=== PATIENT | female | born 1955 | race Caucasian/White ===

== ENCOUNTER 2018-02-18 15:54 | Inpatient (IN) | payer OTHER, MEDICAID ==
[~2018-02-18] VITALS: Ht 167.6 cm; Wt 114.4 kg
[~2018-02-18 15:54] MED LIST: ALBU8.5H8 IH; CETI-193 PO; CETI10TA86 PO; CHOL50004 PO; ESOM40CA54 PO; GABA-531 PO; LEVO125T11 PO; LEVO500T2 PO; LORA2TAB2 PO; METH2.5T6 PO; MONT10TA24 PO; PRED20TA3 PO; QUET100T70 PO; RAMI5CAP66 PO; THEO400T3 PO; TIOT4MIS5 IH; VENL-63 PO
[2018-02-18] MEDS ORDERED: IPRATROPIUM/ALBUTEROL SULFATE 3 ML SOLUTION IH ONE ×2 (16:32→18:14)
[2018-02-18 16:35] LABS: BASOPHILS % (AUTO) 1.4 % (0.0-5.0); EOSINOPHILS % (AUTO) 1.1 % (0.0-8.0); HEMATOCRIT 35.6 % (36-48); LYMPHOCYTES % (AUTO) 36.2 % (21.0-51.0); MEAN CORPUSCULAR HGB CONC 33.7 g/dL (32.0-36.0); MEAN CORPUSCULAR VOLUME 80.1 fL (79-99); MONOCYTES % (AUTO) 6.8 % (3.0-13.0); NEUTROPHILS % (AUTO) 54.5 % (40.0-77.0); NUCLEATED RED BLOOD CELLS 0.1 % (0.0-0.19); PLATELET COUNT (AUTO) 263 K/uL (130-400); RED BLOOD CELL COUNT(AUTO) 4.44 MIL/uL (4.00-5.50); RED CELL DISTRIBUTION WIDTH 15.4 % (11.0-15.5); WHITE BLOOD COUNT (AUTO) 6.2 K/uL (4.8-10.8)
[2018-02-18] MEDS ORDERED: METHYLPREDNISOLONE SOD SUCC 125MG/2ML VIAL ONE (16:37)
[2018-02-18] MEDS ORDERED: ACETAMINOPHEN EXTRA STRENGTH 500 MG TABLET ONE (16:37)
[2018-02-18] MEDS ORDERED: LEVOFLOXACIN 750 MG/D5W 150 ML 150 ML ONE (16:37)
[2018-02-18 16:50] LABS: INR 1.01 (0.85-1.15); PARTIAL THROMBOPLASTIN TIME 32.6 SEC (26.3-35.5); PROTHROMBIN TIME 10.6 SEC (9.6-11.6)
[2018-02-18 17:00] LABS: ALANINE AMINOTRANSFERASE 49 U/L (12-78); ASPARTATE AMINOTRANSFERASE 42 U/L (10-37); BILIRUBIN,TOTAL 0.4 mg/dL (0.2-1.0); CARBON DIOXIDE 32 mmol/L (21-32); CHLORIDE 97 mmol/L (101-111); CREATINE KINASE, TOTAL 125 U/L (21-232); CREATININE 0.9 mg/dL (0.5-1.5); GLOMERULAR FILTR. RATE CALC 68 mL/min (>60); GLUCOSE,RANDOM 139 mg/dL (70-105); MYOGLOBIN 109 ng/mL (10-92); SODIUM SERUM 138 mmol/L (136-145); TOTAL PROTEIN, SERUM 7.4 g/dL (6.0-8.3); TROPONIN I < 0.04 ng/mL (0.00-0.06); UREA NITROGEN, BLOOD 18 mg/dL (7-18)
[2018-02-18 17:03] LABS: POTASSIUM 2.9 mmol/L (3.5-5.1)
[2018-02-18] MEDS ORDERED: POTASSIUM CHLORIDE 20 MEQ ERTAB PO ONE (18:02)
[2018-02-18] MEDS ORDERED: CEFTRIAXONE SODIUM 1 GM ONE (18:09)
[2018-02-18] MEDS ORDERED: SODIUM CHLORIDE 0.9% 500ML 500 ML IV ONE (18:10)
[2018-02-18 18:26] LABS: APPEARANCE,URINE Clear (CLEAR); BILIRUBIN,URINE Negative (NEGATIVE); COLOR,URINE Yellow (YELLOW); GLUCOSE, URINE (UA) Negative (NEGATIVE); KETONES,URINE Negative (NEGATIVE); LEUKOCYTE ESTERASE ,URINE Trace (NEGATIVE); NITRATE,URINE Negative (NEGATIVE); OCCULT BLOOD,URINE Negative (NEGATIVE); PH,URINE 6.5 (5.0-8.0); PROTEIN,URINE Trace (NEGATIVE)
[2018-02-18] MEDS ORDERED: POTASSIUM CHLORIDE 20MEQ/100ML 100 ML IV PRN (18:45)
[2018-02-18] MEDS ORDERED: LIDOCAINE HCL-MPF 1% 2ML VIAL IVP PRN (18:45)
[2018-02-18] MEDS ORDERED: POTASSIUM CHLORIDE 10% ELIXIR 20 MEQ/15 ML UDCUP PO PRN (18:45)
[2018-02-18 18:49] LABS: BACTERIA,URINE Few /HPF (None Seen); RBC,URINE 0-1 /HPF (0-1); SQUAMOUS EPITHELIAL CELL,UR Few /HPF (0-2)
[2018-02-18 19:41] LABS: ABG BASE EXCESS 4.4 mmol/L (-2.0-3.0); ABG HCO3 28.4 mmol/L (21.0-28.0); ABG OXYGEN SATURATION 96.9 % (95.0-99.0); ABG PCO2 40 mmHg (32-45)
[2018-02-18] MEDS ORDERED: SODIUM CHLORIDE 0.9% 1000ML 1,000 ML IV SCH (20:18)
[2018-02-18 20:20] VITALS: BP 128/57
[2018-02-18] MEDS: CEFTRIAXONE SODIUM 1 GM IV SCH (20:30)
[2018-02-18] MEDS ORDERED: ONDANSETRON HCL 4 MG/2 ML VIAL IV PRN (20:30)
[2018-02-18] MEDS: LEVOFLOXACIN 500 MG/D5W 100 ML 100 ML IV SCH (20:30)
[2018-02-18] MEDS: METHYLPREDNISOLONE SOD SUCC 125MG/2ML VIAL IV SCH (20:30)
[2018-02-18] MEDS ORDERED: ACETAMINOPHEN 325 MG TAB PO PRN (20:30)
[2018-02-18] MEDS ORDERED: BENZONATATE 100 MG CAPSULE PO SCH (21:00)
[2018-02-18] MEDS ORDERED: BENZONATATE 100 MG CAPSULE PO PRN (21:00)
[2018-02-18] MEDS: IPRATROPIUM/ALBUTEROL SULFATE 3 ML SOLUTION IH SCH (21:08)
[2018-02-18 22:41] LABS: CREATINE KINASE, TOTAL 102 U/L (21-232); MYOGLOBIN 102 ng/mL (10-92); TROPONIN I < 0.04 ng/mL (0.00-0.06)
[2018-02-18] MEDS: MAGNESIUM 2GM PREMIX 50ML 50 ML IV PRN (23:55)
[2018-02-18] MEDS: POTASSIUM CHLORIDE 20 MEQ ERTAB PO PRN (23:58)
[2018-02-19 00:05] VITALS: BP 117/64
[2018-02-19] MEDS: IPRATROPIUM/ALBUTEROL SULFATE 3 ML SOLUTION IH SCH ×6 (01:23→21:45)
[2018-02-19 04:05] VITALS: BP 130/67
[2018-02-19] MEDS: METHYLPREDNISOLONE SOD SUCC 125MG/2ML VIAL IV SCH ×3 (05:06→21:05)
[2018-02-19 05:37] LABS: BASOPHILS % (AUTO) 0.3 % (0.0-5.0); EOSINOPHILS % (AUTO) 0.1 % (0.0-8.0); HEMATOCRIT 30.4 % (36-48); LYMPHOCYTES % (AUTO) 36.5 % (21.0-51.0); MEAN CORPUSCULAR HEMOGLOBIN 27.1 pg (27.0-33.0); MEAN CORPUSCULAR HGB CONC 33.7 g/dL (32.0-36.0); MEAN CORPUSCULAR VOLUME 80.5 fL (79-99); MONOCYTES % (AUTO) 6.5 % (3.0-13.0); NEUTROPHILS % (AUTO) 56.6 % (40.0-77.0); PLATELET COUNT (AUTO) 281 K/uL (130-400); RED BLOOD CELL COUNT(AUTO) 3.78 MIL/uL (4.00-5.50); RED CELL DISTRIBUTION WIDTH 15.6 % (11.0-15.5); WHITE BLOOD COUNT (AUTO) 7.5 K/uL (4.8-10.8)
[2018-02-19 06:00] LABS: ALANINE AMINOTRANSFERASE 40 U/L (12-78); ALBUMIN 2.6 g/dL (3.5-5.0); ASPARTATE AMINOTRANSFERASE 29 U/L (10-37); BILIRUBIN,TOTAL 0.2 mg/dL (0.2-1.0); CARBON DIOXIDE 32 mmol/L (21-32); CHLORIDE 101 mmol/L (101-111); CREATINE KINASE, TOTAL 97 U/L (21-232); CREATININE 0.9 mg/dL (0.5-1.5); GLOMERULAR FILTR. RATE CALC 68 mL/min (>60); GLUCOSE,RANDOM 162 mg/dL (70-105); MYOGLOBIN 83 ng/mL (10-92); POTASSIUM 3.2 mmol/L (3.5-5.1); SODIUM SERUM 139 mmol/L (136-145); TOTAL PROTEIN, SERUM 6.5 g/dL (6.0-8.3); TROPONIN I < 0.04 ng/mL (0.00-0.06); UREA NITROGEN, BLOOD 14 mg/dL (7-18)
[2018-02-19] MEDS: POTASSIUM CHLORIDE 20 MEQ ERTAB PO PRN ×2 (06:24→18:40)
[2018-02-19] MEDS: MAGNESIUM 2GM PREMIX 50ML 50 ML IV PRN (06:35)
[2018-02-19 07:00] VITALS: BP 135/74
[2018-02-19] MEDS: PANTOPRAZOLE SODIUM 40 MG TABLET.DR PO SCH (08:55)
[2018-02-19] MEDS: ENOXAPARIN SODIUM 40 MG/0.4 ML SYRINGE SQ SCH (08:56)
[2018-02-19 11:00] VITALS: BP 132/79
[2018-02-19 16:00] VITALS: BP 142/53
[2018-02-19] MEDS ORDERED: LEVOFLOXACIN 500 MG/D5W 100 ML 100 ML IV SCH (18:15)
[2018-02-19 19:10] VITALS: BP 113/58
[2018-02-19] MEDS: LEVOFLOXACIN 500 MG/D5W 100 ML 100 ML IV SCH (21:02)
[2018-02-19] MEDS: CEFTRIAXONE SODIUM 1 GM IV SCH (21:04)
[2018-02-20 00:15] VITALS: BP 139/75
[2018-02-20] MEDS: IPRATROPIUM/ALBUTEROL SULFATE 3 ML SOLUTION IH SCH ×2 (01:19→06:31)
[2018-02-20 04:36] VITALS: BP 128/69
[2018-02-20] MEDS: METHYLPREDNISOLONE SOD SUCC 125MG/2ML VIAL IV SCH ×2 (04:49→12:36)
[2018-02-20 04:51] LABS: HEMATOCRIT 30.3 % (36-48); MEAN CORPUSCULAR HEMOGLOBIN 27.3 pg (27.0-33.0); MEAN CORPUSCULAR HGB CONC 33.7 g/dL (32.0-36.0); MEAN CORPUSCULAR VOLUME 81.2 fL (79-99); PLATELET COUNT (AUTO) 290 K/uL (130-400); RED BLOOD CELL COUNT(AUTO) 3.73 MIL/uL (4.00-5.50); RED CELL DISTRIBUTION WIDTH 15.8 % (11.0-15.5)
[2018-02-20 04:59] LABS: CREATININE 0.9 mg/dL (0.5-1.5); MAGNESIUM 2.3 mg/dL (1.80-2.40); POTASSIUM 4.1 mmol/L (3.5-5.1)
[2018-02-20 08:36] VITALS: BP 143/79
[2018-02-20] MEDS: PANTOPRAZOLE SODIUM 40 MG TABLET.DR PO SCH (09:28)
[2018-02-20] MEDS: ENOXAPARIN SODIUM 40 MG/0.4 ML SYRINGE SQ SCH (09:29)
[2018-02-20] MEDS ORDERED: LEVO500T89 PO (11:32)
[2018-02-20 11:38] VITALS: BP 104/63
[2018-02-20] MEDS ORDERED: IPRATROPIUM/ALBUTEROL SULFATE 3 ML SOLUTION IH SCH (18:00)
== END 2018-02-20 15:50 | disposition home or self-care (01) | DRG 872 ==
LOC: EDH 15:54 → EDHIP 18:30 → 3DH 19:31 → 3BH 19:40
PROVIDERS: ADMIT Hospitalist; ATTEND Hospitalist
DX: A41.9 Sepsis, unspecified organism (principal); J44.1 Chronic obstructive pulmonary disease with (acute) exacerbation; Z68.41 Body mass index [BMI] 40.0-44.9, adult; R65.20 Severe sepsis without septic shock; E87.6 Hypokalemia; E66.01 Morbid (severe) obesity due to excess calories; E89.0 Postprocedural hypothyroidism; G62.9 Polyneuropathy, unspecified; M79.7 Fibromyalgia; F41.9 Anxiety disorder, unspecified; Z90.710 Acquired absence of both cervix and uterus; Z87.01 Personal history of pneumonia (recurrent); Z85.850 Personal history of malignant neoplasm of thyroid; Z85.820 Personal history of malignant melanoma of skin; Z82.49 Family history of ischemic heart disease and other diseases of the circulatory system
CPT/HCPCS: 36415; 36600; 71045; 80048; 80053; 80339; 81001; 82550; 82803; 83605; 83735; 83874; 84132; 84484; 85025; 85027; 85610; 85730; 86140; 87040; 87088; 87804; 93005; 94640; 94664; A4218; J0696; J1650; J1956; J2930; J3475; J3480; J7030; J7040

== ENCOUNTER 2018-07-02 21:38 | Inpatient (IN) | payer OTHER, MEDICAID | END 2018-07-04 15:00 | disposition home or self-care (01) | LOC: EDH 21:38 → EDHIP 23:50 → 2AH 07-03 01:36 | DX: J45.901 Unspecified asthma with (acute) exacerbation (principal); K44.9 Diaphragmatic hernia without obstruction or gangrene; Z98.84 Bariatric surgery status ==

== ENCOUNTER 2018-10-07 11:32 | Inpatient (IN) | payer OTHER, MEDICAID ==
[~2018-10-07] VITALS: Ht 167.6 cm; Wt 113.4 kg
[~2018-10-07 11:32] MED LIST changes: -ALBU8.5H8 IH; +ALPR2TAB7 PO; +ASPI-555 PO; +BUDE10.2 IH; +CARV3.12 PO; -CETI-193 PO; +CETI10TA57 PO; -CETI10TA86 PO; -CHOL50004 PO; +DOCU240C25 PO; +ESOM20TA PO; -ESOM40CA54 PO; +FURO20TA4 PO; -LEVO125T11 PO; +LEVO25TA54 PO; -LEVO500T2 PO; -LORA2TAB2 PO; -METH2.5T6 PO; +PANT40TA25 PO; -PRED20TA3 PO; +PRED5TAB44 PO; -THEO400T3 PO; -VENL-63 PO
[2018-10-07] MEDS ORDERED: ASPIRIN 325 MG TABLET ONE (12:23)
[2018-10-07 12:41] LABS: BASOPHILS % (AUTO) 0.3 % (0.0-5.0); EOSINOPHILS % (AUTO) 0.2 % (0.0-8.0); HEMATOCRIT 35.6 % (36-48); LYMPHOCYTES % (AUTO) 6.6 % (21.0-51.0); MEAN CORPUSCULAR HEMOGLOBIN 28.3 pg (27.0-33.0); MEAN CORPUSCULAR HGB CONC 33.4 g/dL (32.0-36.0); MEAN CORPUSCULAR VOLUME 84.7 fL (79-99); MONOCYTES % (AUTO) 3.6 % (3.0-13.0); NEUTROPHILS % (AUTO) 89.3 % (40.0-77.0); PLATELET COUNT (AUTO) 225 K/uL (130-400); RED BLOOD CELL COUNT(AUTO) 4.21 MIL/uL (4.00-5.50); RED CELL DISTRIBUTION WIDTH 13.8 % (11.0-15.5); WHITE BLOOD COUNT (AUTO) 10.2 K/uL (4.8-10.8)
[2018-10-07 12:55] LABS: INR 1.04 (0.85-1.15); PARTIAL THROMBOPLASTIN TIME 29.9 SEC (26.3-35.5); PROTHROMBIN TIME 10.9 SEC (9.6-11.6)
[2018-10-07 12:58] LABS: CREATININE 1.1 mg/dL (0.5-1.5)
[2018-10-07 13:17] LABS: ALBUMIN 2.8 g/dL (3.5-5.0); BILIRUBIN,TOTAL 0.4 mg/dL (0.2-1.0); TOTAL PROTEIN, SERUM 6.2 g/dL (6.0-8.3)
[2018-10-07] MEDS ORDERED: ACETAMINOPHEN EXTRA STRENGTH 500 MG TABLET ONE (13:22)
[2018-10-07 13:27] LABS: B-TYPE NATRIURETIC PEPTIDE 10 pg/mL (0-100)
[2018-10-07 13:30] LABS: BAND NEUTROPHILS % (MANUAL) 20 % (0-2); EOSINOPHILS % (MANUAL) 1 % (1-6); LYMPHOCYTES % (MANUAL) 8 % (22-44); MAN.DIFF COMMENT-IMPRESSION MANUAL DIFFERENTIAL; MONOCYTES % (MANUAL) 3 % (2-9); PLATELET MORPHOLOGY COMMENT ADEQUATE; SEGMENTED NEUTROPHILS % 68 % (40-70)
[2018-10-07] MEDS ORDERED: POTASSIUM CHLORIDE 20 MEQ ERTAB PO ONE ×2 (13:59→19:13)
[2018-10-07] MEDS ORDERED: LEVOFLOXACIN 500 MG/D5W 100 ML 100 ML ONE (13:59)
[2018-10-07] MEDS ORDERED: IPRATROPIUM/ALBUTEROL SULFATE 3 ML SOLUTION IH ONE (15:45)
[2018-10-07] MEDS ORDERED: HYDRALAZINE HCL 20 MG/ML VIAL IV PRN (18:15)
[2018-10-07] MEDS ORDERED: GUAIFENESIN-DM 200/20 MG 10 ML PO PRN (18:15)
[2018-10-07] MEDS: AZITHROMYCIN 500MG+NS 250ML 250 ML IV SCH (18:15)
[2018-10-07] MEDS ORDERED: LACTULOSE 20 GM/30 ML UDCUP PO PRN (18:15)
[2018-10-07] MEDS ORDERED: ACETAMINOPHEN 325 MG TAB PO PRN ×2 (18:15)
[2018-10-07] MEDS ORDERED: ONDANSETRON HCL 4 MG/2 ML VIAL IV PRN (18:15)
[2018-10-07] MEDS ORDERED: POTASSIUM CHLORIDE 20 MEQ ERTAB PO SCH ×2 (18:30→22:30)
[2018-10-07] MEDS ORDERED: AZITHROMYCIN 500MG+NS 250ML 250 ML IV ONE (19:13)
[2018-10-07] MEDS ORDERED: SODIUM CHLORIDE 0.9% 1000ML 1,000 ML IV ONE (19:13)
[2018-10-07] MEDS ORDERED: ACETAMINOPHEN 325 MG TAB ONE (19:23)
[2018-10-07] MEDS ORDERED: SODIUM CHLORIDE 3% FOR INHALATION 4 ML/AMP VIAL.NEB IH ONE (19:55)
[2018-10-07] MEDS: CEFTRIAXONE SODIUM 1 GM IV SCH (21:00)
[2018-10-07] MEDS: FAMOTIDINE/PF 20 MG/2 ML VIAL IV SCH (21:00)
[2018-10-07] MEDS ORDERED: CEFTRIAXONE SODIUM 1 GM ONE (21:34)
[2018-10-07] MEDS ORDERED: FAMOTIDINE 20MG TAB 20 MG TAB ONE (21:34)
[2018-10-08 00:18] VITALS: BP 126/61
[2018-10-08] MEDS: SODIUM CHLORIDE 3% FOR INHALATION 4 ML/AMP VIAL.NEB IH SCH ×5 (00:24→23:07)
[2018-10-08] MEDS: SODIUM CHLORIDE 0.9% 1000ML 1,000 ML IV SCH ×2 (00:49→04:11)
[2018-10-08] MEDS ORDERED: POTA10TA14 PO (02:04)
[2018-10-08] MEDS ORDERED: BUTA-256 PO (02:04)
[2018-10-08] MEDS ORDERED: TRAM50TA4 PO (02:04)
[2018-10-08] MEDS ORDERED: GABA-531 PO (02:04)
[2018-10-08] MEDS ORDERED: LEVO112T7 PO (02:04)
[2018-10-08] MEDS ORDERED: OLME20TA22 PO (02:04)
[2018-10-08] MEDS ORDERED: VENL150T3 PO (02:04)
[2018-10-08] MEDS ORDERED: LEVO500T89 PO (02:04)
[2018-10-08 03:00] VITALS: BP 138/74
[2018-10-08] MEDS: METHYLPREDNISOLONE SOD SUCC 40MG/ML 1ML IVP SCH ×4 (03:40→22:43)
[2018-10-08 06:10] LABS: HEMATOCRIT 33.3 % (36-48); MEAN CORPUSCULAR HEMOGLOBIN 28.4 pg (27.0-33.0); MEAN CORPUSCULAR HGB CONC 33.5 g/dL (32.0-36.0); MEAN CORPUSCULAR VOLUME 84.9 fL (79-99); PLATELET COUNT (AUTO) 230 K/uL (130-400); RED BLOOD CELL COUNT(AUTO) 3.92 MIL/uL (4.00-5.50); RED CELL DISTRIBUTION WIDTH 13.6 % (11.0-15.5); WHITE BLOOD COUNT (AUTO) 18.1 K/uL (4.8-10.8)
[2018-10-08 06:25] LABS: CREATININE 0.8 mg/dL (0.5-1.5); POTASSIUM 3.7 mmol/L (3.5-5.1)
[2018-10-08 08:00] VITALS: BP 112/78
[2018-10-08] MEDS: CEFTRIAXONE SODIUM 1 GM IV SCH ×2 (08:35→22:44)
[2018-10-08] MEDS: CETIRIZINE HCL 5 MG TABLET PO SCH (08:36)
[2018-10-08] MEDS: ENOXAPARIN SODIUM 40 MG/0.4 ML SYRINGE SQ SCH (08:36)
[2018-10-08] MEDS: FAMOTIDINE/PF 20 MG/2 ML VIAL IV SCH ×2 (08:36→22:24)
[2018-10-08] MEDS ORDERED: IPRATROPIUM/ALBUTEROL SULFATE 3 ML SOLUTION IH ONE (10:39)
[2018-10-08] MEDS: ACETYLCYSTEINE 20% 200MG/ML 4ML VIAL PO SCH ×3 (12:52→23:07)
[2018-10-08] MEDS: IPRATROPIUM/ALBUTEROL SULFATE 3 ML SOLUTION IH SCH ×3 (12:53→23:07)
[2018-10-08] MEDS ORDERED: ALBUTEROL SULFATE 0.083% 2.5 MG/3 ML INH IH PRN (14:00)
[2018-10-08] MEDS: GABAPENTIN 300 MG CAPSULE PO SCH ×2 (15:14→22:43)
[2018-10-08 16:00] VITALS: BP 129/76
[2018-10-08] MEDS: INSULIN HUMULIN R 100 UNIT/ML 3ML SQ SCH ×2 (16:30→22:30)
--- NOTE | 2018-10-08 17:21 | NUR ---
DCP CM met with pt discussed dc plans. Pt is assist with ADL's prior to admission, lives at home with spouse and takes care of 3 grandchildren. Pt has a provider w/[employer] 15hrs/wk, has oxygen, nebulizer machine, and shower chair at home. Pt feels safe to go back home, spouse able to assist with transportation and needs, spouse able to assist with transportation and needs as necessary. DC plan to home once stable. CM to cont to follow up. Addendum: 10/08/18 at 1724 by ANGEL LUIS HERNANDEZ LVN CM Amended: Links added.
[2018-10-08] MEDS: AZITHROMYCIN 500MG+NS 250ML 250 ML IV SCH (17:31)
[2018-10-08 19:35] VITALS: BP 134/76
[2018-10-08] MEDS ORDERED: SUB PER P&T FOR ASTHMA OR COPD RECOMMENDATION IH SCH (21:00)
[2018-10-08] MEDS: MONTELUKAST SODIUM 10 MG TAB PO SCH ×2 (21:00→22:25)
[2018-10-08] MEDS: VENLAFAXINE HCL XR 37.5 MG CAP PO SCH (22:24)
[2018-10-08] MEDS: DOCUSATE SODIUM 100 MG CAP PO SCH (22:25)
[2018-10-08] MEDS: CARVEDILOL 3.125 MG TABLET PO SCH (22:25)
[2018-10-08] MEDS: ALPRAZOLAM 1 MG TAB PO SCH (22:26)
[2018-10-08 23:35] VITALS: BP 153/87
[2018-10-09 03:35] VITALS: BP 126/55
[2018-10-09 05:56] LABS: BASOPHILS % (AUTO) 0.2 % (0.0-5.0); HEMATOCRIT 33.8 % (36-48); LYMPHOCYTES % (AUTO) 6.8 % (21.0-51.0); MEAN CORPUSCULAR HEMOGLOBIN 27.6 pg (27.0-33.0); MEAN CORPUSCULAR HGB CONC 32.3 g/dL (32.0-36.0); MEAN CORPUSCULAR VOLUME 85.4 fL (79-99); MONOCYTES % (AUTO) 2.1 % (3.0-13.0); NEUTROPHILS % (AUTO) 90.9 % (40.0-77.0); PLATELET COUNT (AUTO) 282 K/uL (130-400); RED BLOOD CELL COUNT(AUTO) 3.96 MIL/uL (4.00-5.50); WHITE BLOOD COUNT (AUTO) 17.1 K/uL (4.8-10.8)
[2018-10-09 06:02] LABS: CREATININE 0.8 mg/dL (0.5-1.5); POTASSIUM 4.3 mmol/L (3.5-5.1)
[2018-10-09] MEDS: IPRATROPIUM/ALBUTEROL SULFATE 3 ML SOLUTION IH SCH ×3 (07:16→19:26)
[2018-10-09] MEDS: ACETYLCYSTEINE 20% 200MG/ML 4ML VIAL PO SCH ×2 (07:17→19:26)
[2018-10-09] MEDS: INSULIN HUMULIN R 100 UNIT/ML 3ML SQ SCH ×3 (07:20→22:29)
[2018-10-09] MEDS: METHYLPREDNISOLONE SOD SUCC 40MG/ML 1ML IVP SCH ×2 (07:25→15:41)
[2018-10-09] MEDS: LEVOTHYROXINE 112 MCG TABLET PO SCH (07:25)
[2018-10-09] MEDS: ASPIRIN 81 MG EC TAB PO SCH (07:25)
[2018-10-09 08:00] VITALS: BP 146/72
[2018-10-09] MEDS: CETIRIZINE HCL 5 MG TABLET PO SCH ×2 (09:00→09:54)
[2018-10-09] MEDS ORDERED: POTASSIUM CHLORIDE 10 MEQ/TAB.SA PO SCH (09:00)
[2018-10-09] MEDS: DOCUSATE SODIUM 100 MG CAP PO SCH ×2 (09:51→22:26)
[2018-10-09] MEDS: ALPRAZOLAM 1 MG TAB PO SCH ×2 (09:51→22:26)
[2018-10-09] MEDS: LOSARTAN 50 MG TABLET PO SCH (09:52)
[2018-10-09] MEDS: VENLAFAXINE HCL XR 37.5 MG CAP PO SCH ×2 (09:53→22:26)
[2018-10-09] MEDS: CARVEDILOL 3.125 MG TABLET PO SCH ×2 (09:53→22:27)
[2018-10-09] MEDS: GABAPENTIN 300 MG CAPSULE PO SCH ×3 (09:54→22:26)
[2018-10-09] MEDS: FUROSEMIDE 20 MG TABLET PO SCH (09:55)
[2018-10-09] MEDS: FAMOTIDINE/PF 20 MG/2 ML VIAL IV SCH ×2 (09:55→22:25)
[2018-10-09] MEDS: CEFTRIAXONE SODIUM 1 GM IV SCH ×2 (09:55→22:21)
[2018-10-09] MEDS: ENOXAPARIN SODIUM 40 MG/0.4 ML SYRINGE SQ SCH (09:58)
[2018-10-09] MEDS: SODIUM CHLORIDE 3% FOR INHALATION 4 ML/AMP VIAL.NEB IH SCH ×2 (11:26→19:26)
[2018-10-09 12:00] VITALS: BP 136/79
[2018-10-09 20:00] VITALS: BP 133/67
[2018-10-09] MEDS: MONTELUKAST SODIUM 10 MG TAB PO SCH ×2 (21:00→22:25)
[2018-10-10] VITALS: BP 153/94
[2018-10-10 04:00] VITALS: BP 144/86
[2018-10-10 05:11] LABS: BASOPHILS % (AUTO) 0.3 % (0.0-5.0); EOSINOPHILS % (AUTO) 0.2 % (0.0-8.0); HEMATOCRIT 32.2 % (36-48); LYMPHOCYTES % (AUTO) 15.3 % (21.0-51.0); MEAN CORPUSCULAR HEMOGLOBIN 28.5 pg (27.0-33.0); MEAN CORPUSCULAR HGB CONC 33.5 g/dL (32.0-36.0); MONOCYTES % (AUTO) 4.5 % (3.0-13.0); NEUTROPHILS % (AUTO) 79.7 % (40.0-77.0); PLATELET COUNT (AUTO) 275 K/uL (130-400); RED BLOOD CELL COUNT(AUTO) 3.78 MIL/uL (4.00-5.50); RED CELL DISTRIBUTION WIDTH 13.8 % (11.0-15.5); WHITE BLOOD COUNT (AUTO) 16.7 K/uL (4.8-10.8)
[2018-10-10 05:16] LABS: CREATININE 0.8 mg/dL (0.5-1.5); POTASSIUM 3.9 mmol/L (3.5-5.1)
[2018-10-10] MEDS: SODIUM CHLORIDE 3% FOR INHALATION 4 ML/AMP VIAL.NEB IH SCH ×2 (06:11→11:18)
[2018-10-10] MEDS: ACETYLCYSTEINE 20% 200MG/ML 4ML VIAL PO SCH (06:12)
[2018-10-10] MEDS: IPRATROPIUM/ALBUTEROL SULFATE 3 ML SOLUTION IH SCH ×2 (06:12→11:18)
[2018-10-10] MEDS: INSULIN HUMULIN R 100 UNIT/ML 3ML SQ SCH ×2 (06:27→11:30)
[2018-10-10] MEDS: LEVOTHYROXINE 112 MCG TABLET PO SCH (06:39)
[2018-10-10 07:39] VITALS: BP 154/87
--- NOTE | 2018-10-10 08:00 | NUR ---
AM SHIFT ASSESSMENT, BREATHING EASY AND STATES FEELING SO MUCH BETTER.
[2018-10-10] MEDS: FUROSEMIDE 20 MG TABLET PO SCH (08:45)
[2018-10-10] MEDS: ALPRAZOLAM 1 MG TAB PO SCH (08:45)
[2018-10-10] MEDS: CETIRIZINE HCL 5 MG TABLET PO SCH ×2 (08:45)
[2018-10-10] MEDS: VENLAFAXINE HCL XR 37.5 MG CAP PO SCH (08:46)
[2018-10-10] MEDS: DOCUSATE SODIUM 100 MG CAP PO SCH (08:46)
[2018-10-10] MEDS: ASPIRIN 81 MG EC TAB PO SCH (08:46)
[2018-10-10] MEDS: LOSARTAN 50 MG TABLET PO SCH (08:47)
[2018-10-10] MEDS: FAMOTIDINE/PF 20 MG/2 ML VIAL IV SCH (08:49)
[2018-10-10] MEDS: CARVEDILOL 3.125 MG TABLET PO SCH (08:49)
[2018-10-10] MEDS: ENOXAPARIN SODIUM 40 MG/0.4 ML SYRINGE SQ SCH (08:53)
[2018-10-10] MEDS ORDERED: PREDNISONE 20 MG TABLET PO SCH (09:00)
[2018-10-10] MEDS ORDERED: FLUC150T6 PO (09:08)
[2018-10-10] MEDS ORDERED: CEFD300C3 PO (09:08)
[2018-10-10] MEDS ORDERED: METH4TAB3 PO (09:17)
[2018-10-10] MEDS: CEFTRIAXONE SODIUM 1 GM IV SCH ×2 (10:08→10:19)
[2018-10-10] MEDS: GABAPENTIN 300 MG CAPSULE PO SCH (10:08)
[2018-10-10 12:00] VITALS: BP 141/93
--- NOTE | 2018-10-10 13:36 | NUR ---
DISCHARGED NOW USING TEACH BACK. DISCHARGE INST. WITH RX GIVEN WITH SPOUSE PRESENT. BOTH VERBALIZE UNDERSTANDING.
[2018-10-12 13:11] LABS: ALPHA-1-ANTITRYPSIN 135 mg/dL (90-200)
== END 2018-10-10 13:40 | disposition home or self-care (01) | DRG 193 ==
LOC: EDH 11:32 → EDHIP 18:11 → 3AH 10-08 00:18
PROVIDERS: ADMIT Internal Medicine; ATTEND Internal Medicine
DX: J18.9 Pneumonia, unspecified organism (principal); J96.21 Acute and chronic respiratory failure with hypoxia; E44.0 Moderate protein-calorie malnutrition; J44.0 Chronic obstructive pulmonary disease with (acute) lower respiratory infection; J44.1 Chronic obstructive pulmonary disease with (acute) exacerbation; Z68.41 Body mass index [BMI] 40.0-44.9, adult; E87.6 Hypokalemia; E89.0 Postprocedural hypothyroidism; Z99.81 Dependence on supplemental oxygen; Z90.710 Acquired absence of both cervix and uterus; Z90.721 Acquired absence of ovaries, unilateral; Z82.49 Family history of ischemic heart disease and other diseases of the circulatory system
CPT/HCPCS: 36415; 71045; 80048; 80053; 82103; 82104; 82550; 82948; 83605; 83874; 83880; 84484; 85025; 85027; 85610; 85730; 87040; 87071; 87205; 87486; 87581; 87633; 87798; 93005; 94640; 94664; 94667; 94668; G0378; J0456; J0696; J1650; J1815; J1956; J2920; J3490; J7030; J7608

== ENCOUNTER 2018-11-10 09:56 | Inpatient (IN) | payer OTHER, MEDICAID ==
[~2018-11-10] VITALS: Ht 170.2 cm; Wt 113.5 kg
[~2018-11-10 09:56] MED LIST changes: +CEFD300C3 PO; +FLUC150T6 PO; +LEVO112T7 PO; -LEVO25TA54 PO; +METH4TAB3 PO; +OLME20TA22 PO; -PANT40TA25 PO; +POTA10TA14 PO; -PRED5TAB44 PO; -QUET100T70 PO; +TRAM50TA4 PO; +VENL150T3 PO
[2018-11-10] MEDS ORDERED: ENOXAPARIN SODIUM 40 MG/0.4 ML SYRINGE SQ ONE (10:51)
[2018-11-10] MEDS ORDERED: METHYLPREDNISOLONE SOD SUCC 40MG/ML 1ML ONE (10:51)
[2018-11-10] MEDS ORDERED: ZOSYN 3.375GM+NS 50ML 50 ML IV ONE (10:51)
[2018-11-10] MEDS ORDERED: PANTOPRAZOLE SODIUM 40 MG TABLET.DR PO ONE (10:52)
[2018-11-10 11:09] LABS: CREATININE 0.9 mg/dL (0.5-1.5); POTASSIUM 3.9 mmol/L (3.5-5.1)
[2018-11-10 11:40] LABS: BASOPHILS % (AUTO) 0.3 % (0.0-5.0); EOSINOPHILS % (AUTO) 0.1 % (0.0-8.0); HEMATOCRIT 35.3 % (36-48); LYMPHOCYTES % (AUTO) 10.6 % (21.0-51.0); MEAN CORPUSCULAR HEMOGLOBIN 27.5 pg (27.0-33.0); MEAN CORPUSCULAR HGB CONC 32.9 g/dL (32.0-36.0); MEAN CORPUSCULAR VOLUME 83.6 fL (79-99); MONOCYTES % (AUTO) 4.1 % (3.0-13.0); NEUTROPHILS % (AUTO) 84.9 % (40.0-77.0); PLATELET COUNT (AUTO) 216 K/uL (130-400); RED BLOOD CELL COUNT(AUTO) 4.22 MIL/uL (4.00-5.50); RED CELL DISTRIBUTION WIDTH 14.5 % (11.0-15.5); WHITE BLOOD COUNT (AUTO) 15.7 K/uL (4.8-10.8)
[2018-11-10 12:05] LABS: B-TYPE NATRIURETIC PEPTIDE 21 pg/mL (0-100)
[2018-11-10 14:27] LABS: APPEARANCE,URINE Clear (CLEAR); BILIRUBIN,URINE Negative (NEGATIVE); COLOR,URINE Yellow (YELLOW); GLUCOSE, URINE (UA) Negative (NEGATIVE); KETONES,URINE Negative (NEGATIVE); LEUKOCYTE ESTERASE ,URINE Trace (NEGATIVE); NITRATE,URINE Negative (NEGATIVE); OCCULT BLOOD,URINE Negative (NEGATIVE); PH,URINE 5.5 (5.0-8.0); PROTEIN,URINE Negative (NEGATIVE)
[2018-11-10 14:46] LABS: BACTERIA,URINE Rare /HPF (None Seen); RBC,URINE 0-1 /HPF (0-1); SQUAMOUS EPITHELIAL CELL,UR Rare /HPF (0-2); TRANSITIONAL EPI CELLS,URINE Rare /HPF (None Seen); WBC,URINE 0-1 /HPF (0-1)
[2018-11-10 16:21] VITALS: BP 122/64
[2018-11-10] MEDS ORDERED: BENZONATATE 100 MG CAPSULE PO PRN (16:30)
[2018-11-10] MEDS ORDERED: GUAIFENESIN-DM 200/20 MG 10 ML PO PRN (16:30)
[2018-11-10] MEDS ORDERED: FLUT1BLS3 IH (17:11)
[2018-11-10] MEDS ORDERED: METOCLOPRAMIDE 10 MG/2 ML VIAL IVP PRN (17:30)
[2018-11-10] MEDS ORDERED: DOCUSATE SODIUM 100 MG CAP PO PRN (17:30)
[2018-11-10] MEDS ORDERED: ACETAMINOPHEN 650 MG SUPPOSITORY RC PRN (17:30)
[2018-11-10] MEDS ORDERED: VANCOMYCIN 1GM+NS 250ML 250 ML IV SCH (17:30)
[2018-11-10] MEDS ORDERED: IPRATROPIUM/ALBUTEROL SULFATE 3 ML SOLUTION IH ONE ×2 (17:58→23:11)
[2018-11-10] MEDS ORDERED: BUDESONIDE 0.5 MG/2 ML INH IH ONE (17:58)
[2018-11-10] MEDS: METHYLPREDNISOLONE SOD SUCC 125MG/2ML VIAL IVP SCH (19:02)
[2018-11-10] MEDS ORDERED: COMPOUND IV REFRIGERATED 1 EACH IVSOLN MISC PRN (19:45)
[2018-11-10 20:00] VITALS: BP 136/68
[2018-11-10] MEDS ORDERED: VANCOMYCIN 1.5 GM in SODIUM CHLORIDE 0.9% 250 ML IV SCH (21:00)
[2018-11-10] MEDS: ZOSYN 3.375GM+NS 50ML 50 ML IV SCH (21:56)
[2018-11-10] MEDS: INSULIN HUMULIN R 100 UNIT/ML 3ML SQ SCH (22:03)
[2018-11-10] MEDS ORDERED: IPRATROPIUM/ALBUTEROL SULFATE 3 ML SOLUTION IH PRN (23:45)
[2018-11-11] VITALS: BP 110/58
[2018-11-11] MEDS: METHYLPREDNISOLONE SOD SUCC 125MG/2ML VIAL IVP SCH ×3 (02:54→22:11)
[2018-11-11 04:00] VITALS: BP 116/61
[2018-11-11] MEDS: ZOSYN 3.375GM+NS 50ML 50 ML IV SCH ×3 (05:00→22:10)
[2018-11-11] MEDS: IPRATROPIUM/ALBUTEROL SULFATE 3 ML SOLUTION IH SCH ×4 (06:40→23:25)
[2018-11-11] MEDS: BUDESONIDE 0.5 MG/2 ML INH IH SCH ×2 (06:41→17:56)
[2018-11-11] MEDS: INSULIN HUMULIN R 100 UNIT/ML 3ML SQ SCH ×4 (07:30→21:00)
[2018-11-11 08:00] VITALS: BP 132/74
[2018-11-11] MEDS: PANTOPRAZOLE SODIUM 40 MG TABLET.DR PO SCH (08:09)
--- NOTE | 2018-11-11 09:30 | NUR ---
BEDSIDE SWALLOW EVALUATION COMPLETED. -S/S OF ASPIRATION. RECOMMEND REGULAR TEXTURE; THIN LIQUIDS; PILLS WHOLE WITH LIQUIDS. RECOMMENDATIONS 1. REMAIN UPRIGHT 30 MINS AFTER THE MEALS 2. GI CONSULT RECOMMENDED SECONDARY TO COMPLAINS OF FOOD GETTING STUCK AT LEVEL OF MID ESOPHAGUS. Pt REPORTS HIATAL HERNIA WITH PAST LAP BAND PLACEMENT. PLEASE CONSIDER ESOPHAGRAM. Addendum: 11/11/18 at 1109 by JAMIE DAMON, [facility] Amended: Links added.
[2018-11-11] MEDS: VANCOMYCIN 1.25 GM in SODIUM CHLORIDE 0.9% 250 ML IV SCH ×2 (10:07→22:10)
[2018-11-11] MEDS: ENOXAPARIN SODIUM 40 MG/0.4 ML SYRINGE SQ SCH (10:08)
--- NOTE | 2018-11-11 11:30 | NUR ---
ENCOURAGED PT FOR SELF USE EVERY 6 HOURS. PT SEEMED ABLE AND WILLING TO COMPLY Addendum: 11/11/18 at 1131 by MAGY FRYE RT RT Amended: Links added.
[2018-11-11 11:46] VITALS: BP 146/77
[2018-11-11 13:02] LABS: BASOPHILS % (AUTO) 0.1 % (0.0-5.0); HEMATOCRIT 36.3 % (36-48); LYMPHOCYTES % (AUTO) 6.9 % (21.0-51.0); MEAN CORPUSCULAR HEMOGLOBIN 27.4 pg (27.0-33.0); MEAN CORPUSCULAR HGB CONC 32.3 g/dL (32.0-36.0); MEAN CORPUSCULAR VOLUME 84.6 fL (79-99); MONOCYTES % (AUTO) 1.6 % (3.0-13.0); NEUTROPHILS % (AUTO) 91.4 % (40.0-77.0); PLATELET COUNT (AUTO) 232 K/uL (130-400); RED BLOOD CELL COUNT(AUTO) 4.29 MIL/uL (4.00-5.50); RED CELL DISTRIBUTION WIDTH 14.7 % (11.0-15.5); WHITE BLOOD COUNT (AUTO) 18.7 K/uL (4.8-10.8)
[2018-11-11 13:05] LABS: POTASSIUM 3.8 mmol/L (3.5-5.1)
[2018-11-11 13:51] LABS: INR 0.95 (0.85-1.15)
--- NOTE | 2018-11-11 14:58 | NUR ---
DCP CM met with pt discussed dc plans. Pt is assist with ADL's, lives at home with spouse and 3 grandchildren. Pt has provider 15hrs/wk, nebulizer machine, and shower chair. Denies any other equipments/services. Feels safe to go back home, spouse able to assist with transportation and needs as necessary. DC plan to home once stable. CM to cont to follow up. Addendum: 11/11/18 at 1501 by ANGEL LUIS HERNNADEZ LVN CM Amended: Links added.
[2018-11-11 16:00] VITALS: BP 117/68
--- NOTE | 2018-11-11 16:25 | NUR ---
RD Notification Pt with Hx of Lap Band Surgery, Hiatal Hernia. Pt only able to eat small portions per meals; Recommend to modify diet to 6 small meals/offering of in between meal snacks. Pt tolerating 75gm, Na2Gm. Pt LBM 11/09/18. Pt monitored labs: Cl 100, BUN 23, Glu 142. RD updated food preferences. RD to continue to monitor. Please notify RD as additional nutrition concerns arise. Thank you. Addendum: 11/11/18 at [address] RD Amended: Links added.
[2018-11-11 21:57] VITALS: BP 146/78
[2018-11-12] VITALS (20 sets, daily range): BP systolic 117–163; BP diastolic 49–93
[2018-11-12] MEDS: ZOSYN 3.375GM+NS 50ML 50 ML IV SCH ×3 (05:05→21:40)
[2018-11-12 06:37] LABS: HEMATOCRIT 34.4 % (36-48); MEAN CORPUSCULAR HEMOGLOBIN 27.4 pg (27.0-33.0); MEAN CORPUSCULAR HGB CONC 32.4 g/dL (32.0-36.0); MEAN CORPUSCULAR VOLUME 84.4 fL (79-99); PLATELET COUNT (AUTO) 264 K/uL (130-400); RED BLOOD CELL COUNT(AUTO) 4.08 MIL/uL (4.00-5.50); RED CELL DISTRIBUTION WIDTH 14.9 % (11.0-15.5); WHITE BLOOD COUNT (AUTO) 15.2 K/uL (4.8-10.8)
[2018-11-12] MEDS: BUDESONIDE 0.5 MG/2 ML INH IH SCH ×2 (06:43→18:14)
[2018-11-12] MEDS: IPRATROPIUM/ALBUTEROL SULFATE 3 ML SOLUTION IH SCH ×4 (06:43→23:31)
[2018-11-12 06:46] LABS: CREATININE 0.9 mg/dL (0.5-1.5); MAGNESIUM 1.9 mg/dL (1.80-2.40); PHOSPHORUS 3.9 mg/dL (2.5-4.9); POTASSIUM 4.3 mmol/L (3.5-5.1)
[2018-11-12] MEDS: PANTOPRAZOLE SODIUM 40 MG TABLET.DR PO SCH (07:30)
[2018-11-12] MEDS: INSULIN HUMULIN R 100 UNIT/ML 3ML SQ SCH ×4 (07:30→21:00)
[2018-11-12 07:51] LABS: LYMPHOCYTES % (MANUAL) 20 % (22-44); MAN.DIFF COMMENT-IMPRESSION MANUAL DIFFERENTIAL; MONOCYTES % (MANUAL) 2 % (2-9); PLATELET MORPHOLOGY COMMENT ADEQUATE; SEGMENTED NEUTROPHILS % 78 % (40-70)
[2018-11-12] MEDS ORDERED: FENTANYL CITRATE PF 50 MCG/1 ML 2ML VIAL ONE (08:53)
[2018-11-12] MEDS ORDERED: PROPOFOL 10 MG/ML 20ML VIAL IV ONE ×2 (08:53)
[2018-11-12] MEDS: ENOXAPARIN SODIUM 40 MG/0.4 ML SYRINGE SQ SCH (09:00)
[2018-11-12] MEDS: METHYLPREDNISOLONE SOD SUCC 125MG/2ML VIAL IVP SCH ×2 (09:00→10:26)
[2018-11-12] MEDS: VANCOMYCIN 1.25 GM in SODIUM CHLORIDE 0.9% 250 ML IV SCH ×2 (10:09→21:41)
[2018-11-12] MEDS ORDERED: MONTELUKAST SODIUM 10 MG TAB PO SCH (21:00)
[2018-11-13 00:16] VITALS: BP 154/80
[2018-11-13 04:12] VITALS: BP 113/79
[2018-11-13 05:03] LABS: BASOPHILS % (AUTO) 0.2 % (0.0-5.0); EOSINOPHILS % (AUTO) 0.4 % (0.0-8.0); HEMATOCRIT 33.8 % (36-48); LYMPHOCYTES % (AUTO) 28.6 % (21.0-51.0); MEAN CORPUSCULAR HEMOGLOBIN 27.8 pg (27.0-33.0); MEAN CORPUSCULAR HGB CONC 33.1 g/dL (32.0-36.0); MONOCYTES % (AUTO) 5.3 % (3.0-13.0); NEUTROPHILS % (AUTO) 65.5 % (40.0-77.0); NUCLEATED RED BLOOD CELLS 0.1 % (0.0-0.19); PLATELET COUNT (AUTO) 249 K/uL (130-400); RED BLOOD CELL COUNT(AUTO) 4.02 MIL/uL (4.00-5.50)
[2018-11-13] MEDS: ZOSYN 3.375GM+NS 50ML 50 ML IV SCH ×2 (05:15→12:35)
[2018-11-13 05:23] LABS: CREATININE 0.9 mg/dL (0.5-1.5); MAGNESIUM 2.1 mg/dL (1.80-2.40); PHOSPHORUS 4.1 mg/dL (2.5-4.9); POTASSIUM 3.6 mmol/L (3.5-5.1)
[2018-11-13] MEDS: INSULIN HUMULIN R 100 UNIT/ML 3ML SQ SCH ×2 (05:53→11:30)
[2018-11-13] MEDS: BUDESONIDE 0.5 MG/2 ML INH IH SCH (06:43)
[2018-11-13] MEDS: IPRATROPIUM/ALBUTEROL SULFATE 3 ML SOLUTION IH SCH ×2 (06:43→11:10)
[2018-11-13 07:30] VITALS: BP 138/77
[2018-11-13] MEDS ORDERED: CETIRIZINE HCL 5 MG TABLET PO SCH (09:00)
[2018-11-13] MEDS ORDERED: PREDNISONE 20 MG TABLET PO SCH (09:00)
[2018-11-13] MEDS: VANCOMYCIN 1.25 GM in SODIUM CHLORIDE 0.9% 250 ML IV SCH (09:16)
[2018-11-13] MEDS: ENOXAPARIN SODIUM 40 MG/0.4 ML SYRINGE SQ SCH (09:17)
[2018-11-13] MEDS: PANTOPRAZOLE SODIUM 40 MG TABLET.DR PO SCH (09:26)
[2018-11-13 11:00] VITALS: BP 178/92
--- NOTE | 2018-11-13 16:44 | NUR ---
DISCHARGE PATIENT GIVEN DISCHARGE INSTRUCTIONS VIA TEACH BACK. 22G PIV TO LEFT WRIST AND 20G PIV TO LEFT HAND DISCONTINUED, TIP INTACT. RX GIVEN FOR LEVAQUIN 500MG 1 TAB PO X 7 DAYS. PATIENT TO FOLLOW UP WITH DR. SHEPARD AND ILEANA MILLER NP. PATIENT PENDING SPOUSE TO BRING PORTABLE O2 FOR DISCHARGE. PATIENT STABLE AT THIS TIME.
--- NOTE | 2018-11-13 17:15 | NUR ---
SPOUSE PRESENT WITH PORTABLE O2 TANK. PATIENT WHEELED DOWNSTAIRS TO LOBBY BY FRANKLIN BOWLING.
[2018-11-14] MEDS ORDERED: PREDNISONE 10 MG TABLET PO SCH (09:00)
== END 2018-11-13 17:15 | disposition home or self-care (01) | DRG 871 ==
LOC: EDH 09:56 → EDHIP 10:17 → 3BH 15:23
PROVIDERS: ADMIT Internal Medicine Pulmonary Disease; ATTEND Internal Medicine Pulmonary Disease
PROC: 0DB58ZX Excision of Esophagus, Via Natural or Artificial Opening Endoscopic, Diagnostic (ICD-10-PCS; principal; 2018-11-12)
PROC: 0DB68ZX Excision of Stomach, Via Natural or Artificial Opening Endoscopic, Diagnostic (ICD-10-PCS; 2018-11-12)
DX: A41.9 Sepsis, unspecified organism (principal); J69.0 Pneumonitis due to inhalation of food and vomit; J44.1 Chronic obstructive pulmonary disease with (acute) exacerbation; J44.0 Chronic obstructive pulmonary disease with (acute) lower respiratory infection; J96.11 Chronic respiratory failure with hypoxia; K76.0 Fatty (change of) liver, not elsewhere classified; K21.0 Gastro-esophageal reflux disease with esophagitis; K31.89 Other diseases of stomach and duodenum; K44.9 Diaphragmatic hernia without obstruction or gangrene; R13.10 Dysphagia, unspecified; E66.01 Morbid (severe) obesity due to excess calories; I11.9 Hypertensive heart disease without heart failure; Z68.39 Body mass index [BMI] 39.0-39.9, adult; Z87.01 Personal history of pneumonia (recurrent); Z99.81 Dependence on supplemental oxygen; Z79.51 Long term (current) use of inhaled steroids; Z79.82 Long term (current) use of aspirin; Z79.899 Other long term (current) drug therapy; Z85.850 Personal history of malignant neoplasm of thyroid; Z90.710 Acquired absence of both cervix and uterus; Z90.721 Acquired absence of ovaries, unilateral
CPT/HCPCS: 36415; 43239; 71250; 80048; 80202; 81001; 82550; 82948; 83735; 83880; 84100; 84484; 85025; 85610; 87040; 88305; 92610; 93005; 94640; 94664; 94667; 94668; G0378; J1650; J1815; J2543; J2704; J2920; J2930; J3010; J3370; J7030

== ENCOUNTER → 2018-12-29 | Outpatient (CLI) | payer OTHER, MEDICAID ==
[~2018-12-29] MED LIST changes: -BUDE10.2 IH; -CEFD300C3 PO; -FLUC150T6 PO; +FLUT1BLS3 IH; -METH4TAB3 PO; -RAMI5CAP66 PO; -TIOT4MIS5 IH; -TRAM50TA4 PO
== END | disposition home or self-care (01) ==
LOC: RAH 13:16
PROVIDERS: ATTEND Nurse Practitioner Family
DX: R06.02 Shortness of breath (principal); M47.814 Spondylosis without myelopathy or radiculopathy, thoracic region
CPT/HCPCS: 71046

== ENCOUNTER 2020-06-08 11:24 | Emergency (ER) | payer OTHER, MEDICAID ==
[~2020-06-08 11:24] MED LIST changes: -ASPI-555 PO; +ASPI-556 PO; +MONT-39 PO; -MONT10TA24 PO
[2020-06-08] MEDS ORDERED: HYDROCODONE/ACETAMINOPHEN 10/325 MG TAB ONE (12:05)
== END 2020-06-08 14:07 | disposition home or self-care (01) ==
LOC: EDH 11:24
DX: S52.502A Unspecified fracture of the lower end of left radius, initial encounter for closed fracture (principal); S40.012A Contusion of left shoulder, initial encounter; J45.909 Unspecified asthma, uncomplicated; J44.9 Chronic obstructive pulmonary disease, unspecified; Z90.49 Acquired absence of other specified parts of digestive tract; Z90.710 Acquired absence of both cervix and uterus; W18.39XA Other fall on same level, initial encounter; Y93.89 Activity, other specified; Y92.090 Kitchen in other non-institutional residence as the place of occurrence of the external cause; Y99.8 Other external cause status
CPT/HCPCS: 29125; 73030; 73110; 73130

== ENCOUNTER → 2022-03-04 | Outpatient (CLI) | payer OTHER, MEDICARE | END | disposition home or self-care (01) | LOC: RAH 14:14 | PROVIDERS: ATTEND Family Medicine | DX: S06.9X1A Unspecified intracranial injury with loss of consciousness of 30 minutes or less, initial encounter (principal); X58.XXXA Exposure to other specified factors, initial encounter; Y93.89 Activity, other specified; Y92.89 Other specified places as the place of occurrence of the external cause; Y99.8 Other external cause status | CPT/HCPCS: 70450 ==

== ENCOUNTER → 2022-10-14 | Outpatient (CLI) | payer OTHER, MEDICARE | END | disposition home or self-care (01) | LOC: SHCH 08:57 | PROVIDERS: ATTEND Internal Medicine Cardiovascular Disease | DX: I87.2 Venous insufficiency (chronic) (peripheral) (principal) | CPT/HCPCS: 93970 ==

== ENCOUNTER → 2022-10-24 | Outpatient (CLI) | payer OTHER, MEDICARE | END | disposition home or self-care (01) | LOC: RAH 13:32 | PROVIDERS: ATTEND Internal Medicine Critical Care Medicine | DX: J45.40 Moderate persistent asthma, uncomplicated (principal) | CPT/HCPCS: 71250 ==

== ENCOUNTER → 2022-12-02 | Outpatient (CLI) | payer OTHER, MEDICARE | END | disposition home or self-care (01) | LOC: RAH 13:34 | PROVIDERS: ATTEND Physical Medicine & Rehabilitation | DX: M47.817 Spondylosis without myelopathy or radiculopathy, lumbosacral region (principal); M54.9 Dorsalgia, unspecified; M54.2 Cervicalgia; D18.09 Hemangioma of other sites; M47.812 Spondylosis without myelopathy or radiculopathy, cervical region; M48.02 Spinal stenosis, cervical region | CPT/HCPCS: 72050; 72148 ==

== ENCOUNTER 2023-01-01 06:11 | Day surgery (SDC) | payer OTHER, MEDICARE ==
[2022-12-30 14:57] LABS: BASOPHILS # (AUTO) 0.04 K/uL (0.00-0.20); BASOPHILS % (AUTO) 0.5 % (0.0-5.0); EOSINOPHILS # (AUTO) 0.25 K/uL (0.00-0.70); EOSINOPHILS % (AUTO) 2.9 % (0.0-8.0); IMMATURE GRANULOCYTE ABSOLUTE 0.06 K/uL (0-1); LYMPHOCYTES # (AUTO) 2.4 K/uL (1.0-4.8); LYMPHOCYTES % (AUTO) 27.2 % (21.0-51.0); MEAN CORPUSCULAR HEMOGLOBIN 26.7 pg (27.0-33.0); MEAN CORPUSCULAR HGB CONC 31.2 g/dL (32.0-36.0); MEAN CORPUSCULAR VOLUME 85.5 fL (79-99); MONOCYTES # (AUTO) 0.7 K/uL (0.1-1.0); MONOCYTES % (AUTO) 8.2 % (3.0-13.0); NEUTROPHILS # (AUTO) 5.3 K/uL (1.8-7.7); NEUTROPHILS % (AUTO) 60.5 % (40.0-77.0); PLATELET COUNT (AUTO) 253 K/uL (130-400); RED BLOOD CELL COUNT(AUTO) 4.91 MIL/uL (4.00-5.50); RED CELL DISTRIBUTION WIDTH 14.1 % (11.0-15.5); WHITE BLOOD COUNT (AUTO) 8.7 K/uL (4.8-10.8)
[2022-12-30 15:07] LABS: CREATININE 0.9 mg/dL (0.5-1.5); INR 0.94 (0.85-1.15); POTASSIUM 3.5 mmol/L (3.5-5.1)
[2022-12-30 15:08] LABS: PARTIAL THROMBOPLASTIN TIME 32.2 SEC (26.3-35.5)
[2022-12-30 15:36] VITALS: BP 158/75; PULSE 93; RESP 18
[2023-01-01] VITALS (11 sets, daily range): BP systolic 130–178; BP diastolic 63–90; PULSE 66–87; RESP 13–18
[~2023-01-01] VITALS: Ht 182.9 cm; Wt 112.3 kg
[~2023-01-01 06:11] MED LIST changes: +ACET-66 PO; -ALPR2TAB7 PO; -ASPI-556 PO; +ATOR40TA71 PO; +BUDE10.7 IH; -CARV3.12 PO; +CHOL100046 PO; -DOCU240C25 PO; -ESOM20TA PO; -FLUT1BLS3 IH; -FURO20TA4 PO; -GABA-531 PO; +GABA300C PO; -LEVO112T7 PO; +LORA-192 PO; -POTA10TA14 PO; +SERT-440 PO; +TRAZ150 PO; -VENL150T3 PO
[2023-01-01] MEDS ORDERED: 0.9%NACL 1000ML 1,000 ML IV ONE (06:24)
[2023-01-01] MEDS ORDERED: HEPARIN 10,000 UNIT/10ML (1,000 UNIT/ML) VIAL ONE (07:20)
[2023-01-01] MEDS ORDERED: IODIXANOL 320 MG/ML 100 ML VIAL ONE (07:20)
[2023-01-01] MEDS ORDERED: LIDOCAINE HCL 400MG/20ML VIAL ONE (07:20)
[2023-01-01] MEDS ORDERED: MIDAZOLAM HCL 1 MG/ML 2ML VIAL ONE (07:21)
[2023-01-01] MEDS ORDERED: FENTANYL CITRATE PF 50 MCG/1 ML 2ML VIAL ONE ×2 (07:21→08:28)
[2023-01-01] MEDS ORDERED: NITROGLYCERIN 50MG VIAL ONE (07:27)
[2023-01-01] MEDS ORDERED: CLOPIDOGREL 300MG TAB ONE (08:23)
[2023-01-01] MEDS ORDERED: ASPIRIN 325MG EC TAB PO ONE (08:23)
[2023-01-01] MEDS ORDERED: GLUCAGON 1MG KIT 1 MG ML IM PRN (08:30)
[2023-01-01] MEDS ORDERED: DEXTROSE 50%-WATER 50 ML DISP.SYRIN IV PRN (08:30)
[2023-01-01] MEDS ORDERED: TRAMADOL HCL 50 MG TABLET ONE (09:35)
[2023-01-01] MEDS ORDERED: TRAMADOL HCL 50 MG TABLET PO ONE (09:56)
== END 2023-01-01 14:15 | disposition home or self-care (01) ==
LOC: DAH 06:11
PROVIDERS: ATTEND Internal Medicine Cardiovascular Disease
DX: I87.1 Compression of vein (principal); I87.2 Venous insufficiency (chronic) (peripheral); I10 Essential (primary) hypertension; E78.5 Hyperlipidemia, unspecified; E03.9 Hypothyroidism, unspecified; J45.909 Unspecified asthma, uncomplicated; G47.33 Obstructive sleep apnea (adult) (pediatric); J44.9 Chronic obstructive pulmonary disease, unspecified; E66.9 Obesity, unspecified; Z79.01 Long term (current) use of anticoagulants; Z79.899 Other long term (current) drug therapy; Z88.6 Allergy status to analgesic agent; Z91.040 Latex allergy status; Z98.890 Other specified postprocedural states; Z86.16 Personal history of COVID-19; Z90.710 Acquired absence of both cervix and uterus; Z90.49 Acquired absence of other specified parts of digestive tract; Z82.49 Family history of ischemic heart disease and other diseases of the circulatory system; Z68.39 Body mass index [BMI] 39.0-39.9, adult
CPT/HCPCS: 80048; 85025; 85610; 85730; 36415; 37238; 75822; 36012; 37252; 37253 ×5; C1876; C1769 ×2; C1894 ×2; C1753; J3010 ×2; J3490 ×2; J7030; J1644 ×2; J2250; Q9967; A4215; A4335; A4222; A4221; A4663; A4216; A4606; Q9965; A4520; A4223 ×3; A4554; 99156; 99157

== ENCOUNTER → 2023-06-18 | Outpatient (CLI) | payer OTHER, MEDICARE ==
[~2023-06-18] MED LIST changes: -OLME20TA22 PO; +OLME20TA68 PO
[2023-06-18 16:44] LABS: ALBUMIN 3.4 g/dL (3.5-5.0); BILIRUBIN,TOTAL 0.4 mg/dL (0.2-1.0); CREATININE 1.1 mg/dL (0.5-1.5); MAGNESIUM 1.9 mg/dL (1.80-2.40); TOTAL PROTEIN, SERUM 7.2 g/dL (6.0-8.3)
== END | disposition home or self-care (01) ==
LOC: LAB 11:19
PROVIDERS: ATTEND Internal Medicine Cardiovascular Disease
DX: I10 Essential (primary) hypertension (principal); I87.2 Venous insufficiency (chronic) (peripheral)
CPT/HCPCS: 36415; 80053; 83735; 83880

== ENCOUNTER → 2023-07-19 | Outpatient (CLI) | payer OTHER, MEDICARE | END | disposition home or self-care (01) | LOC: SHCH 09:49 | PROVIDERS: ATTEND Internal Medicine Cardiovascular Disease | DX: I35.8 Other nonrheumatic aortic valve disorders (principal); I11.9 Hypertensive heart disease without heart failure | CPT/HCPCS: 93306 ==

== ENCOUNTER → 2023-08-27 | Outpatient (CLI) | payer OTHER, MEDICARE ==
[2023-08-27 12:17] LABS: ALBUMIN 3.2 g/dL (3.5-5.0); BILIRUBIN,TOTAL 0.4 mg/dL (0.2-1.0); CREATININE 0.9 mg/dL (0.5-1.0); MAGNESIUM 1.7 mg/dL (1.80-2.40); POTASSIUM 4.3 mmol/L (3.5-5.1)
== END | disposition home or self-care (01) ==
LOC: LAB 08:50
PROVIDERS: ATTEND Internal Medicine Cardiovascular Disease
DX: I87.2 Venous insufficiency (chronic) (peripheral) (principal); I10 Essential (primary) hypertension
CPT/HCPCS: 36415; 80053; 83735; 83880

== ENCOUNTER → 2023-09-01 | Outpatient (CLI) | payer OTHER, MEDICARE ==
[~2023-09-01] MED LIST changes: +IOHEXOL 350 MG/ML 100ML INFUS..BTL IV ONE; +IOHEXOL-350 50ML VIAL IV ONE; +METOPROLOL TARTRATE 1 MG/ML 5ML VIAL IV ONE
== END | disposition home or self-care (01) ==
LOC: RAH 10:08
PROVIDERS: ATTEND Internal Medicine Cardiovascular Disease
DX: I25.10 Atherosclerotic heart disease of native coronary artery without angina pectoris (principal); R07.9 Chest pain, unspecified
CPT/HCPCS: 75574; J3490; Q9967 ×2